=== PATIENT | female | born 1960 | race Caucasian/White ===

== ENCOUNTER 2018-08-13 09:01 | Inpatient (IN) ==
[2018-08-13] MEDS ORDERED: Acetaminophen 325 MG TABLET PO PRN (12:14)
[2018-08-13] MEDS ORDERED: traMADol 50 MG TABLET PO PRN (12:14)
[2018-08-13] MEDS ORDERED: OXYCODONE Oral CONC 10 MG/0.5 ML ORAL.SYG SL PRN ×2 (12:15→12:23)
[2018-08-13] MEDS ORDERED: Naloxone 0.4 MG/ML INJ IVP PRN ×2 (12:21→19:14)
[2018-08-13] MEDS ORDERED: Ondansetron 4 MG/2 ML VIAL IVP PRN ×2 (12:21→19:14)
[2018-08-13] MEDS ORDERED: Ketorolac 15 MG/ML VIAL IVP PRN ×2 (12:23→19:14)
--- NOTE | 2018-08-13 12:26 | Internal Med History&Physical ---
Date of Encounter: 08/13/18 Time of Encounter: 12:00 Internal Medicine - H&P: HPI Chief complaint: fall, L hip pain Admitted From: Hospital to Hospital Transfer History of present illness: Ms. Rios is a 57 year old female with history of depression, migraine, GERD, who presented to the outside hospital ED after an episode of fall. She was walking early this morning, slipped on ice, and fell onto her left side. Subsequently followed by intense L hip pain. Denies any loss of consciousness or head injury. No prodromal symptoms including chest pain, shortness of breath, palpitation, diaphoresis, blurring of vision, or lightheadedness. No recent illnesses, fever/chills, nausea/vomiting, facial droop, slurring of speech, focal weakness/numbness, abdominal pain, change in bowel habits, or dysuria. Prior to the injury, she was able to climb up a flight of stairs without difficulty. Upon presentation, she was afebrile and hemodynamically stable. Labwork showed white blood cell count of 7, hemoglobin 12.9, platelet 206, normal electrolytes and creatinine. EKG shows normal sinus rhythm without ischemic changes. X-ray showed subcapital fracture of the proximal left femur. Orthopedic surgery was contacted from the [facility] and the decision was made to admit the patient at [facility] for further management. Past Med Surg Social Fam HX - Past Medical History Attestation: Yes The following information was validated with the patient. Medical history: GERD, migraine Psychiatric history: depression - Past Surgical History Surgical History: no surgical history - Social History Smoking Status: Never smoker Smokeless Tobacco Status: No Alcohol use: rarely Drug use: none - Family History Mother Adopted: [place]: Candis Cancino Age: 86 Living Status: Still Living Hx Family Cardiac Disorders: Yes (HTN, STROKE) Hx Family Respiratory Disorders: No Hx Family Cancer: No Hx Family GI Disorders: No Hx Family Genitourinary Disorders: No Hx Family Endocrine Disorder: No Hx Family Musculoskeletal Disorders: No Hx Family Neuromuscular Disorders: No Hx Family Neurologic Disorders: No Hx Family HEENT Disorders: No Hx Family Autoimmune Disorders: No Hx Family Reproductive Disorders: No Hx Family Psychosocial Disorders: No Hx Family Medical Disorders: No Internal Medicine - H&P: Meds Allergy/AdvReac Type Severity Reaction Status Date / Time No Known Allergies Allergy Verified 08/13/18 11:30 All Systems PM: A 10-system review of systems was performed and is negative for pertinent findings except as documented above in the HPI. - Constitutional Vitals: Temp Pulse Resp BP 97.5 F L 123 15 158/91 08/13/18 11:44 08/13/18 11:44 08/13/18 11:44 08/13/18 11:44 Exam: General: Alert and oriented, not in acute distress. HEENT:EOMI, pupils equal, round and reactive. Cardiovascular:Normal S1 & S2, No JVD. Pulse regular. Lungs: clear to auscultation, no wheezes/rales Abdomen:Soft, non-tender, no rigidity. Extremities: LLE externally rotated, tender on groin. Neurovascularly intact distally Neurological:Normal cognition and motor skills. Non-focal Skin:Normal color, no rash, no lesions. Pulses:Carotid and radial pulses normal +2. Rest of the physical exam is non contributory - Assessment and Plan (1) Closed left femoral fracture Current Visit: Yes Status: Acute Assessment and plan: following a mechanical fall XR at OSH showed subcapital fracture of the proximal left femur ortho consult, for OR tonight pain mx Qualifiers: Encounter type: initial encounter Femur location: neck Qualified Code(s): S72.002A - Fracture of unspecified part of neck of left femur, initial encounter for closed fracture (2) Pre-operative cardiovascular examination Current Visit: Yes Status: Acute Assessment and plan: Patient does not have any signs and symptoms of ACS, malignant arrhythmia, or decompensated CHF. RCRI 0, 3.9% risk of MACE Able to perform > 4 METS at baseline Low risk for surgery, no further testing indicated (3) Migraine Current Visit: No Status: Chronic Assessment and plan: resume home meds once reconciled Qualifiers: Migraine type: unspecified Status migrainosus presence: without status migrainosus Intractability: not intractable Qualified Code(s): G43.909 - Migraine, unspecified, not intractable, without status migrainosus (4) Depression Current Visit: No Status: Chronic Assessment and plan: resume home meds once reconciled Qualifiers: Depression Type: unspecified Qualified Code(s): F32.9 - Major depressive disorder, single episode, unspecified (5) DVT prophylaxis Current Visit: Yes Status: Acute Assessment and plan: EPCD - Time Spent With Patient Total time spent is greater than 50% in coordination of care (as documented) at patient's floor/unit and/or counseling patient: Greater than 35 minutes
[2018-08-13] MEDS ORDERED: Ringers Solution, Lactated 1,000 ML IVC SCH ×3 (12:30→19:14)
--- NOTE | 2018-08-13 14:08 | Orthopedic Consult Note ---
Date of Encounter: 08/13/18 Time of Encounter: 14:08 Assessment and Plan (1) Status post fall Current Visit: Yes Status: Acute (2) Closed left femoral fracture Current Visit: Yes Status: Acute Qualifiers: Encounter type: initial encounter Femur location: neck Qualified Code(s): S72.002A - Fracture of unspecified part of neck of left femur, initial encounter for closed fracture History of Present Illness Chief complaint: left hip pain with fracture HPI: Ms. Rios is a 57 year old female Presents to [facility] from [facility] after sustaining fall in her employer's parking lot at shortly after 530 this morning. She states she was in the parking lot and walking toward building when she states both her feet went out from under her leading to fall directly onto the left hip. she states she developed pain immediately and was unable to rise to standing. States that had to have people pick her up off the ground. She denies hitting her head or LOC, blurry vision, chest pain, or shortness of breath surrounding the fall. States that she has had ongoing pain since transfer from [facility] to [place]. Denies history of fracture or orthopedic surgery in the past. She denies any history of osteoporosis. On exam patient lying supine in no acute distress. Alert and oriented x 3. Left leg externally rotated. No other gross deformity noted on exam. No calf tenderness to palpation. Neurovascularly intact to b/l LE. CT Mathieu performed for evaluation fracture and for surgical planning reveals acute fracture of the intratrochanteric left femur Assessment Left femur fracture PLAN Case discussed with Dr. Sebastian Left total hip replacement with robotic assistance Informed consent reviewed and obtained from patient Continue NPO Surgery later today Thank you for this consultation Past Med Surg Social Fam HX - Past Medical History Medical history: GERD, migraine Psychiatric history: depression - Past Surgical History Surgical History: no surgical history - Social History Smoking Status: Never smoker Smokeless Tobacco Status: No Alcohol use: rarely Drug use: none - Family History Mother Adopted: [place]: Candis Cancino Age: 86 Living Status: Still Living Hx Family Cardiac Disorders: Yes (HTN, STROKE) Hx Family Respiratory Disorders: No Hx Family Cancer: No Hx Family GI Disorders: No Hx Family Genitourinary Disorders: No Hx Family Endocrine Disorder: No Hx Family Musculoskeletal Disorders: No Hx Family Neuromuscular Disorders: No Hx Family Neurologic Disorders: No Hx Family HEENT Disorders: No Hx Family Autoimmune Disorders: No Hx Family Reproductive Disorders: No Hx Family Psychosocial Disorders: No Hx Family Medical Disorders: No Medications and Allergies Allergy/AdvReac Type Severity Reaction Status Date / Time No Known Allergies Allergy Verified 08/13/18 11:30 All Systems Reviewed: The remainder of the systems were reviewed and are negative Physical Exam - Constitutional Vitals: Temp Pulse Resp BP 97.5 F L 123 15 158/91 08/13/18 11:44 08/13/18 11:44 08/13/18 11:44 08/13/18 11:44 Results - Labs Labs: All other labs normal. Consult Discharge Plan - Plan Referrals: NONE,PCP [Primary Care Provider] -
[2018-08-13] MEDS ORDERED: *HR* Labetalol 20 MG/4 ML SYRINGE IVP PRN ×2 (14:19→19:14)
--- NOTE | 2018-08-13 15:30 | Anesthesia Evaluation PreOp ---
Date of Encounter: 08/13/18 Time of Encounter: 15:28 - Past History Planned Operation: Robotic L-Total Hip Cardiac History: Denies any Significant Hx Pulmonary History: Denies Any Significant HX CASE BRIEFER History: Other (Migraine, Anxiety/Depression) Other Medical History: GERD Anesthesia History: Past Anesthesia (NO prior GA), MH (NO FamHx of MH) Alcohol Use: rarely Drug use: none Medications and Allergies Allergy/AdvReac Type Severity Reaction Status Date / Time No Known Allergies Allergy Verified 08/13/18 11:30 - Meds/Allergy Pre-op Review Medications Reviewed: Yes Allergies Reviewed: Yes Beta Blockers on Current Med List: No Anesthesia Results - Labs Impressions Hip CT 08/13/18 11:33 IMPRESSION: 1. Limited CT [facility] protocol preoperative planning. 2. Acute fracture of the intratrochanteric left femur. D/ / Jamir Siegel MD / Jamir Siegel MD Interpreting Provider: Jamir Siegel MD - Imaging EKG: image reviewed Chest x-ray: image reviewed Anesthesia Exam Vital Signs Temp Pulse Resp BP Pulse Ox 08/13/18 14:57 98.2 F 82 18 138/70 95 08/13/18 11:44 97.5 F L 123 15 158/91 Intake and Output 08/12/18 08/13/18 08/13/18 23:59 07:59 15:59 Intake Total 200 / 200 Output Total 500 / 500 Balance -300 / -300 Intake: Oral 200 / 200 Output: Urine 500 / 500 Other: # Voids 1 Weight 61.7 kg Patient Weight 08/13/18 23:59 Weight 61.7 kg - HEENT Pupil (Motor): Pupils equal, EOMI Mallampati: II Teeth: Normal Oral Opening: Greater than 3 - CASE BRIEFER LOC: Oriented CASE BRIEFER Motor: Normal RUE, Normal LUE, Normal RLE, Normal LLE, Normal Face CASE BRIEFER Sensory: Normal: RUE, LUE, RLE, LLE, Face - Cardiac Rhythm: Regular Murmur: None - Pulmonary Breath Sounds: bilateral Clear Respiratory Effort: Symmetrical Anesthesia Assess/Plan ASA Score: 2 Level of consciousness: Cooperative, Oriented, Tranquil Anesthetic Plan: MAC, Spinal Monitoring Plan: Standard Monitors Recovery Plan: PACU Anes Supervising Prov Stmt: Pt seen/evaluated, R&B discussed, questions answered and consent obtained. - Farrah,
[2018-08-13] MEDS ORDERED: Ethanol\\Acetic Acid\\Na Ace\\Ben 1,000 ML IRRIG.SOLN IR ONE (15:48)
[2018-08-13] MEDS ORDERED: CeFAZolin Syr 2,000MG/20 ML 2,000 MG/20 ML SYRINGE IVPB ONE (16:04)
[2018-08-13] MEDS ORDERED: *HR* Midazolam HCl 2 MG/2 ML VIAL ONE (16:05)
[2018-08-13] MEDS ORDERED: *HR* FentaNYL (PF) 100 MCG/2 ML VIAL ONE ×2 (16:06→16:37)
[2018-08-13] MEDS ORDERED: Lidocaine -MPF 1% 5 ML AMPUL ONE (16:07)
[2018-08-13] MEDS ORDERED: Acetaminophen IV 1,000 MG/100 ML INFUS..BTL ONE (16:30)
[2018-08-13] MEDS ORDERED: KETAMINE HCL 50 MG/ML SYRINGE IV ONE (16:30)
[2018-08-13] MEDS ORDERED: Propofol 500 MG/50 ML INFUS..BTL ONE (16:43)
[2018-08-13] MEDS ORDERED: *HR* EPINEPHrine 1 MG/ML AMPUL ONE (16:43)
--- NOTE | 2018-08-13 17:02 | Anesthesia Procedures ---
Date of Encounter: 08/13/18 Time of Encounter: 16:40 Procedures: Anesthesia - Epidural/Spinal Patient ID/Chart reviewed: Yes Patient examined: Yes Supplemental Oxygen: Nasal Cannula Supplemental Oxygen Rate (L/min): 2 Sedation: Versed (mg): 2 Sedation: Fentanyl (mcg): 100 Site Prep: Aseptic Technique, Sterile prep and drape, Povidone-Iodine 1% Patient position: right lateral decubitus Local Anesthetic: Lidocaine 1% Amount of Local Anesthetic used: 3 CSF: Yes Paresthesia: Yes (Transient RLE ) Spinal Needle Gauge: 25 Spinal Dose: 2.5mL x 0.5% Bupivicaine + 25mcg Fentanyl Procedure: Robotic L-Total Hip Vitals + FHT's: Vital Signs/O2 Sat/Glucose, Most Current Temp Pulse Resp BP Pulse Ox 08/13/18 16:52 78 16 114/73 98 08/13/18 16:50 79 16 139/89 98 08/13/18 16:46 83 16 153/91 95 08/13/18 16:44 78 16 150/97 95 08/13/18 16:25 81 18 141/93 98 08/13/18 14:57 98.2 F 82 18 138/70 95 Anes Supervising Prov Stmt: Landmarks identified, Sterile P&D, 3mL x 1% Lido local to L2-3. 25G Pencan via introducer midline approach. + Transient RLE paresthesia that resolved quickly. Successfully repositioned, + CSF. 2.5mL x 0.5% Spinal Bupiv + 25mcg Fentanyl via Pencan with good result. Pt tolerated procedure well and without immediate complication. VSS and pt comfortable at time of OR arrival. - MD Farrah
[2018-08-13] MEDS ORDERED: EPHEDrine 50 MG/ML VIAL ONE (17:12)
--- NOTE | 2018-08-13 17:51 | Orthopedic Operative Note ---
Date of procedure: 08/13/18 Pre-op diagnosis: Displaced left femoral neck fracture Post-op diagnosis: same Procedure: Procedure: Left Total Hip Replacment robotic-assisted Estimated blood loss: 200 cc Hardware: Metal and polyethylene replacement. [place] [facility] DM Cup: 46 cup Femoral size 6 stem Head: +3 head with Afsaneh Procedural Notes: Displaced femoral neck fracture Operative procedure: The patient was brought to the operating room and placed on the operating room table. After general anesthesia was administered the patient was placed in the lateral decubitus position with the operative leg up. All pressure points were padded appropriately and the head was stabilized in the neutral position. The operative extremity was prepped and draped in the sterile surgical fashion patient received IV antibiotic prior to skin incision. 2 Steinmann pins were placed in the iliac crest 3 cm proximal to the anterior superior iliac spine this was for the robotic-assisted sensor. This was done through a small 2 cm incision. A standard posterior approach is made to the operative hip, the incision was made through the skin and subcutaneous tissue hemostasis was obtained with Bovie cautery. Using careful sharp dissection the fascia was identified and incised exposing the external rotators. The greater trochanter was marked, and length was measured at this time utilizing robotic assistance. The external rotators were released off the greater trochanter and tagged with #2 FiberWire suture. The capsule was T'd open and the hip was brought into internal rotation. The patient had a displaced fracture the femoral neck, femoral head was removed. The femoral neck cut was made at the appropriate levelsi. anterior capsulotomy was performed for the anterior retractor, soft tissues removed from the acetabulum. The acetabulum was then mapped with robotic assistance. Based on the preoperative plan the acetabulum was reamed in one step with a 46 reamer. The 46 acetabulum was impacted with robotic assistance and 40 degrees of abduction and 26 degrees of anteversion. The hip was brought back in to internal rotation and prepared with the box blank machine operator helper followed by the canal finder followed by the reaming process to a size 5/ 6 broaching process in 20 degrees anteversion. It was broached up to the appropriate size 6 Trial reduction revealed leg lengths close to normal. The femoral implant was impacted in place in 20 degrees of anteversion. Trial reduction found the hip to be stable with 3 head and Afsaneh. The trials were removed and the real implants were impacted in place. The hip was reduced, patient had robotic confirmed leg length of 2 shorter than the contralateral side. The hip had excellent stability with forward flexion to 90 degrees adduction of 30 degrees and internal rotation of 60 degrees. The hip had no shuck. The hip sat with an antibacterial solution. It was irrigated out with 2 L of pulse irrigation. The Steinmann pins were removed. The hip was closed by the PA. The deep tissue was irrigated and closed deep with #1 PDS suture superficially with 0 PDS suture and skin was closed with Dermabond and zip tie. The patient was placed in a sterile dressing and abduction pillow. The patient was extubated and transferred to the recovery room in stable condition. Anesthesia: spinal Surgeon: He Sebastian Was there an activities assistant present: No Estimated blood loss (cc): 200 Condition: stable Disposition: PACU
--- NOTE | 2018-08-13 18:54 | Anesthesia Evaluation Post Op ---
Date of Encounter: 08/13/18 Time of Encounter: 18:54 - Vital Signs Vital Signs: Vital Signs/O2 Sat, Most Current Temp Pulse Resp BP Pulse Ox 97.7 F 92 16 119/72 95 08/13/18 18:46 08/13/18 18:46 08/13/18 18:46 08/13/18 18:46 08/13/18 18:46 - Lungs Lungs: Clear Ascult./Percussion - Airway Airway: Non-obstructed - Cardiovascular Regular Rate - Mental Status Mental Status: Alert & Oriented, Answers Appropriately - Pain Pain Scale: 0 Pain Scale used: Numeric (1 - 10) - Nausea Vomiting Nausea Vomiting: Not Present - Hydration Hydration: Ice chips, Has not voided - Discharge PostOp Status: Transfer Patient to floor
[2018-08-13 18:55] LABS: Hematocrit 33.1 % (35.3-44.9); Hemoglobin 10.4 g/dL (11.5-15.4)
[2018-08-13] MEDS ORDERED: MOM Conc 10 ML UD.LIQ PO PRN (19:14)
[2018-08-13] MEDS ORDERED: Sennosides 8.6 MG TABLET PO PRN (19:14)
[2018-08-13] MEDS ORDERED: *HR* Promethazine 25 MG/ML VIAL IVP PRN (19:14)
[2018-08-13] MEDS ORDERED: Temazepam 15 MG CAPSULE PO PRN (19:14)
[2018-08-13] MEDS: traMADol 50 MG TABLET PO PRN (21:43)
[2018-08-13] MEDS: Ascorbic Acid 500 MG TABLET PO SCH (21:43)
[2018-08-13] MEDS: OXYCODONE Oral CONC 10 MG/0.5 ML ORAL.SYG SL PRN (23:56)
[2018-08-14] MEDS: *HR* Enoxaparin 30 MG/0.3 ML SYRINGE SQ SCH ×2 (06:01→18:17)
[2018-08-14] MEDS: OXYCODONE Oral CONC 10 MG/0.5 ML ORAL.SYG SL PRN ×2 (06:03→10:09)
--- NOTE | 2018-08-14 06:48 | Orthopedics Progress Note ---
Date of Encounter: 08/14/18 Time of Encounter: 06:48 Subjective Interval history: Patient was seen this morning doing well without complaints. Afebrile vital signs stable. Operative extremity: Neurovascularly weakness for dorsiflexion we will monitor Dressing clean dry and intact Calves nontender Assessment and plan: Continue with postoperative care Objective Vital signs: Vital Signs Temp Pulse Resp BP Pulse Ox 08/14/18 06:18 98.7 F 90 18 97/64 93 08/14/18 03:03 98.4 F 87 16 108/71 93 08/13/18 23:29 99.5 F 94 16 140/90 94 08/13/18 19:21 98.4 F 87 16 122/85 95 08/13/18 18:56 85 16 115/71 95 08/13/18 18:46 97.7 F 92 16 119/72 95 08/13/18 18:36 97 16 117/81 94 08/13/18 18:26 101 16 103/64 92 08/13/18 18:16 98.5 F 105 14 107/77 95 08/13/18 16:52 78 16 114/73 98 08/13/18 16:50 79 16 139/89 98 08/13/18 16:46 83 16 153/91 95 08/13/18 16:44 78 16 150/97 95 08/13/18 16:25 81 18 141/93 98 08/13/18 14:57 98.2 F 82 18 138/70 95 08/13/18 11:44 97.5 F L 123 15 158/91 Intake and Output 08/13/18 08/13/18 08/14/18 15:59 23:59 07:59 Intake Total 200 / 200 Output Total 500 / 500 200 / 200 300 / 300 Balance -300 / -300 -200 / -200 -300 / -300 Intake: Oral 200 / 200 Output: Urine 500 / 500 300 / 300 Estimated Blood Loss 200 / 200 Other: # Voids 1 Weight 61.7 kg 63 kg Patient Weight 08/14/18 23:59 Weight 63 kg - Labs CBC & BMP: 08/13/18 18:32 Labs: Abnormal lab results Hgb 10.4 g/dL (11.5-15.4) L 08/13/18 18:32 Hct 33.1 % (35.3-44.9) L 08/13/18 18:32 Consult Discharge Plan - Plan Referrals: NONE,PCP [Primary Care Provider] -
[2018-08-14 07:57] LABS: Hematocrit 29.1 % (35.3-44.9); Hemoglobin 9.5 g/dL (11.5-15.4)
--- NOTE | 2018-08-14 09:32 | Internal Med Progress Note ---
Hospitalist Progress Note - Encounter Date of Encounter: 08/14/18 Time of Encounter: 11:00 - Subjective Interval History: Patient is a 57-year-old female who presented status post fall found to have subcapital fracture of left proximal femur now status post left total hip replacement robotic-assisted - Exam Vitals: Temp Pulse Resp BP Pulse Ox 98.7 F 90 18 97/64 93 08/14/18 06:18 08/14/18 06:18 08/14/18 06:18 08/14/18 06:18 08/14/18 06:18 Exam: Gen.: Nonacute distress, alert and oriented 3 ENT: Mucosal membranes moist Respiratory: Lungs are clear to auscultation bilaterally without any wheezing rhonchi or rales Cardiovascular: Normal S1 and S2 regular rate rhythm no murmurs rubs or gallops Abdomen: Soft, nontender and nondistended with positive bowel sounds Extremities: No lower extremity edema Skin: Normal color - Assessment and Plan (1) Closed left femoral fracture Current Visit: Yes Status: Acute Assessment and Plan: Patient presented status post fall found to have subcapital fracture of left proximal femur now status post left total hip replacement robotic-assisted Orthopedics following and appreciate recommendations (2) Migraine Current Visit: No Status: Chronic Assessment and Plan: Continue home medications (3) Depression Current Visit: No Status: Chronic Assessment and Plan: Continue home medications DVT Prophylaxis: Lovenox subcutaneous - Time Spent with Patient Total time spent is greater than 50% in coordination of care (as documented) at patient's floor/unit and/or counseling patient: Internal Medicine: Result - Labs CBC & Chem 7: 08/14/18 06:51 08/14/18 09:20 Labs: Short CBC 08/13/18 08/14/18 Range/Units 18:32 06:51 Hgb 10.4 L 9.5 L (11.5-15.4) g/dL Hct 33.1 L 29.1 L (35.3-44.9) % - Impressions Impressions Hip CT 08/13/18 11:33 IMPRESSION: 1. Limited CT [facility] protocol preoperative planning. 2. Acute fracture of the intratrochanteric left femur. D/ / Jamir Siegel MD / Jamir Siegel MD Interpreting Provider: Jamir Siegel MD Hip X-Ray 08/13/18 15:50 IMPRESSION: Total hip arthropasty without acute hardware complication. D/ / Conrado Croft MD / Conrado Croft MD Interpreting Provider: Conrado Croft MD Consult Discharge Plan - Plan Referrals: NONE,PCP [Primary Care Provider] - (1) Closed left femoral fracture Qualifiers: Encounter type: initial encounter Femur location: neck Qualified Code(s): S72.002A - Fracture of unspecified part of neck of left femur, initial encounter for closed fracture (2) Migraine Qualifiers: Migraine type: unspecified Status migrainosus presence: without status migrainosus Intractability: not intractable Qualified Code(s): G43.909 - Migraine, unspecified, not intractable, without status migrainosus (3) Depression Qualifiers: Depression Type: unspecified Qualified Code(s): F32.9 - Major depressive disorder, single episode, unspecified
[2018-08-14 09:50] LABS: BUN/Creatinine Ratio 22 (6-26); Blood Urea Nitrogen 16 mg/dL (6-20); Calcium 8.5 mg/dL (8.6-10.3); Carbon Dioxide 25 mEq/L (23-29); Chloride 103 mEq/L (98-107); Glucose 175 mg/dL (70-105); Osmolality,Calculated 283 (280-300); Sodium 134 mEq/L (136-145); eGFR For Non-African Americans > 60 (> 60)
[2018-08-14] MEDS: Multivit/Ca/Min/Fe/FA 1 TAB TABLET PO SCH (10:08)
[2018-08-14] MEDS ORDERED: DICLOFENAC SODIUM TP PRN (11:32)
[2018-08-14] MEDS ORDERED: traZODone 50 MG TABLET PO PRN (11:32)
[2018-08-14] MEDS ORDERED: Loratadine 10 MG TABLET PO PRN (11:32)
[2018-08-14] MEDS ORDERED: Ketorolac 15 MG/ML VIAL IM ONE (14:23)
[2018-08-14] MEDS: Ascorbic Acid 500 MG TABLET PO SCH ×2 (14:43→18:17)
[2018-08-14] MEDS ORDERED: 0.9 % Sodium Chloride 500 ML IVC ONE (17:28)
[2018-08-14] MEDS: traMADol 50 MG TABLET PO PRN (21:55)
--- NOTE | 2018-08-15 00:01 | Event Note ---
Date of Encounter: 08/14/18 Time of Encounter: 13:10 Date of procedure: 08/13/18 Pre-op diagnosis: Displaced left femoral neck fracture Post-op diagnosis: same Procedure: Left Total Hip Replacment robotic-assisted Patient seen at bedside. A&Ox3 Dressing and incision c/d/i No calf tenderness, erythema, or warmth. Vascularly intact b/l LE. LEFT FOOT DROP Abnormal sensation per patient to touch to lateral calf and all of foot. Significant pain to anterolateral thigh. Labwork and medications reviewed. Pain control: difficulty with pain control secondary to limited administration of medication secondary to hypotension - hospitalist team aware Participating in PT. All questions and concerns addressed. Educated on use of incentive spirometer, ambulation, and hydration. Patient educated on post-operative restrictions and care. Addressed: AFO for left foot drop D/C plan: continue postop care - will reevaluate tomorrow
[2018-08-15 05:22] LABS: Hematocrit 26.2 % (35.3-44.9); Hemoglobin 8.8 g/dL (11.5-15.4)
[2018-08-15] MEDS: *HR* Enoxaparin 30 MG/0.3 ML SYRINGE SQ SCH ×2 (06:35→17:02)
[2018-08-15] MEDS: traMADol 50 MG TABLET PO PRN (06:35)
--- NOTE | 2018-08-15 06:51 | Orthopedics Progress Note ---
Date of Encounter: 08/15/18 Time of Encounter: 06:50 Subjective Interval history: Patient was seen this morning doing well without complaints. Afebrile vital signs stable. Operative extremity: Neurovascularly still with persistent motor loss of dorsiflexion, patient reports intact sensation. We will treat with supportive care as. Dressing clean dry and intact Calves nontender Assessment and plan: Continue with postoperative care hemoglobin 8.8, I had a long discussion with regards to the foot drop. Based on the fact that the sensation is intact high confidence that this will return over time. AFO to avoid falling. Objective Vital signs: Vital Signs Temp Pulse Resp BP Pulse Ox 08/15/18 05:03 98.7 F 94 16 104/68 95 08/15/18 01:04 98.7 F 100 16 106/68 95 08/14/18 18:29 98.1 F 92 16 105/67 92 08/14/18 17:22 99/61 08/14/18 14:08 99.1 F 87 18 91/56 94 08/14/18 10:37 99.0 F 96 18 103/68 97 Intake and Output 08/14/18 08/14/18 08/15/18 15:59 23:59 07:59 Intake Total 240 / 240 240 / 240 Output Total 600 / 600 Balance -360 / -360 240 / 240 Intake: Oral 240 / 240 240 / 240 Output: Urine 600 / 600 Other: Meal Breakfast Dinner Percent of Meal Consumed 5% 10% Weight 63.2 kg Patient Weight 08/15/18 23:59 Weight 63.2 kg - Labs CBC & BMP: 08/15/18 04:44 08/14/18 09:20 Labs: Abnormal lab results Hgb 8.8 g/dL (11.5-15.4) L 08/15/18 04:44 Hct 26.2 % (35.3-44.9) L 08/15/18 04:44 Sodium 134 mEq/L (136-145) L 08/14/18 09:20 Glucose 175 mg/dL (70-105) H 08/14/18 09:20 Calcium 8.5 mg/dL (8.6-10.3) L 08/14/18 09:20 Consult Discharge Plan - Plan Referrals: NONE,PCP [Primary Care Provider] -
--- NOTE | 2018-08-15 08:50 | Internal Med Progress Note ---
Hospitalist Progress Note - Encounter Date of Encounter: 08/15/18 Time of Encounter: 08:50 - Exam Vitals: Temp Pulse Resp BP Pulse Ox 98.5 F 87 16 105/64 96 08/15/18 07:00 08/15/18 07:00 08/15/18 07:00 08/15/18 07:00 08/15/18 07:00 - Assessment and Plan (1) Closed left femoral fracture Current Visit: Yes Status: Acute (2) Migraine Current Visit: No Status: Chronic (3) Depression Current Visit: No Status: Chronic - Time Spent with Patient Total time spent is greater than 50% in coordination of care (as documented) at patient's floor/unit and/or counseling patient: Internal Medicine: Result - Labs CBC & Chem 7: 08/15/18 04:44 08/14/18 09:20 Labs: Short CBC 08/15/18 Range/Units 04:44 Hgb 8.8 L (11.5-15.4) g/dL Hct 26.2 L (35.3-44.9) % BMP 08/14/18 09:20 Sodium 134 L Potassium 4.0 Chloride 103 Carbon Dioxide 25 BUN 16 Creatinine 0.72 Glucose 175 H Calcium 8.5 L - Impressions Impressions Hip X-Ray 08/14/18 15:52 IMPRESSION: Stable appearance of the left hip arthroplasty. D/ / Micky Meyers MD / Micky Meyers MD Interpreting Provider: Micky Meyers MD Consult Discharge Plan - Plan Referrals: NONE,PCP [Primary Care Provider] - (1) Closed left femoral fracture Qualifiers: Encounter type: initial encounter Femur location: neck Qualified Code(s): S72.002A - Fracture of unspecified part of neck of left femur, initial encounter for closed fracture (2) Migraine Qualifiers: Migraine type: unspecified Status migrainosus presence: without status migrainosus Intractability: not intractable Qualified Code(s): G43.909 - Migraine, unspecified, not intractable, without status migrainosus (3) Depression Qualifiers: Depression Type: unspecified Qualified Code(s): F32.9 - Major depressive disorder, single episode, unspecified
[2018-08-15] MEDS: Multivit/Ca/Min/Fe/FA 1 TAB TABLET PO SCH (11:30)
[2018-08-15] MEDS: Ascorbic Acid 500 MG TABLET PO SCH ×2 (11:30→17:02)
[2018-08-15] MEDS: *HR* OxyCODONE Immed Rel 5 MG TABLET PO PRN (12:26)
--- NOTE | 2018-08-15 13:10 | Event Note ---
Date of Encounter: 08/15/18 Time of Encounter: 13:10 Date of procedure: 08/13/18 Pre-op diagnosis: Displaced left femoral neck fracture Post-op diagnosis: same Procedure: Left Total Hip Replacment robotic-assisted Patient seen at bedside. Patient's sister and mother at bedside. A&Ox3 No calf tenderness, erythema, or warmth. Vascularly intact b/l LE. LEFT FOOT DROP - AFO in place Abnormal sensation per patient to touch to lateral calf and all of foot though sensation is intact. Significant pain to anterolateral thigh - improving per patient. Labwork and medications reviewed. Pain control: improved/adequate today Participating in PT. All questions and concerns addressed. Educated on use of incentive spirometer, ambulation, and hydration. Patient educated on post-operative restrictions and care. Addressed: AFO for left foot drop D/C plan: continue postop care - SNF for rehab - [place] per 08/16
--- NOTE | 2018-08-15 15:37 | Discharge Summary ---
- NOTES TO OUTPATIENT PROVIDER Notes to Outpatient Provider: Patient had left foot drop after surgery and will need rehabilitation was discharged to SNF. Patient would need further workup for anemia including iron studies and colonoscopy as outpatient. Patient to continue Lovenox 30 twice a day for at least 10-14 days. Will need monitoring of hemoglobin with the one week. Orders not resulted at time of discharge: Pending orders 08/13/18 17:52 Surgical Pathology [PTH] Routine Date of Encounter: 08/15/18 Time of Encounter: 11:39 - Discharge Diagnosis (1) Closed left femoral fracture Priority: Primary Status: Acute Qualifiers: Encounter type: initial encounter Femur location: neck Qualified Code(s): S72.002A - Fracture of unspecified part of neck of left femur, initial encounter for closed fracture (2) Migraine Priority: Secondary Status: Chronic Qualifiers: Migraine type: unspecified Status migrainosus presence: without status migrainosus Intractability: not intractable Qualified Code(s): G43.909 - Migraine, unspecified, not intractable, without status migrainosus (3) Depression Priority: Secondary Status: Chronic Qualifiers: Depression Type: unspecified Qualified Code(s): F32.9 - Major depressive disorder, single episode, unspecified Hospital course: Ms. Rios is a 57 year old female with past medical history of GERD, depression, migraine came to ER after a fall and was found to have close left subcapital fracture of femur. Patient underwent left total hip replacement with robotic assistance. Patient developed some weakness of dorsiflexion on the left foot and left foot drop. Per orthopedics high chances of recovery given sensation intact. Patient hemoglobin remained stable without any signs of bleeding at surgical site. Patient does have some chronic anemia and was started on iron supplementation. Patient would be discharged per physical therapy recommendation to SNF for further rehabilitation. Discharge discussed with: patient, family, nurse, sales and leasing consultant - Time Spent with Patient Total time spent providing and/or coordinating discharge services: Time spent: Greater than 30 minutes - Discharge Medications Prescriptions: New OxyCODONE Immed Rel [Roxicodone 5 MG] 5 mg PO Q6HR PRN 4 Days #15 tablet PRN Reason: Severe Pain Enoxaparin [Lovenox] 30 mg SQ Q12HCO syringe Docusate [Colace] 100 mg PO BID capsule Ferrous Sulfate 325 mg PO BIDWM #0 tablet MOM Conc [MILK OF MAGNESIA conc] 5 ml PO HS PRN ud.liq PRN Reason: Constipation Continue Trazodone HCl 50 mg PO HS PRN PRN Reason: Sleep Omeprazole [PriLOSEC] 40 mg PO DAILY PRN PRN Reason: INDGESTION Loratadine [Allergy Relief] 10 mg PO DAILY PRN PRN Reason: Allergy Symptoms Diclofenac Sodium 1 applic TP QID PRN PRN Reason: Pain Citalopram Hydrobromide [Citalopram HBr] 40 mg PO DAILY Home Medications: Citalopram Hydrobromide [Citalopram HBr] 40 mg PO DAILY 08/13/18 [History] Diclofenac Sodium 1 applic TP QID PRN 08/13/18 [History] Loratadine [Allergy Relief] 10 mg PO DAILY PRN 08/13/18 [History] Omeprazole [PriLOSEC] 40 mg PO DAILY PRN 08/13/18 [History] Trazodone HCl 50 mg PO HS PRN 08/13/18 [History] Docusate [Colace] 100 mg PO BID capsule 08/15/18 [Rx] Enoxaparin [Lovenox] 30 mg SQ Q12HCO syringe 08/15/18 [Rx] Ferrous Sulfate 325 mg PO BIDWM #0 tablet 08/15/18 [Rx] MOM Conc [MILK OF MAGNESIA conc] 5 ml PO HS PRN ud.liq 08/15/18 [Rx] OxyCODONE Immed Rel [Roxicodone 5 MG] 5 mg PO Q6HR PRN 4 Days #15 tablet 08/15/18 [Rx] Allergies/Adverse Reactions: Allergy/AdvReac Type Severity Reaction Status Date / Time No Known Allergies Allergy Verified 08/13/18 11:30 Date of admission: 08/13/18 11:38 Primary care physician: PCP NONE Consults: 08/13/18 11:30 Consult to Vector Control Assistant [CONS] Routine Reason for SW Consult: discharge planning 08/13/18 11:31 Consult to Orthopedic Surgery [CONS] Routine Consulting Provider: He Sebastian Reason for Consult: left femur fracture Call Completed: Yes 08/13/18 19:14 Consult to Nurse Navigator [CONS] Routine Comment: ortho navigator Consult to Occupational Therapy [CONS] Routine Comment: Evaluate, develop and implement POC Reason for Consult: total hip replacement Does patient have active BEDREST order?: No Is patient medically & hemodynamically stable?: Yes Consult to Physical Therapy [CONS] Routine Comment: Evaluate, develop and implement POC Reason for Consult: total hip replacement Does patient have active BEDREST order?: No Is patient medically & hemodynamically stable?: Yes Consult to Vector Control Assistant [CONS] Routine Reason for SW Consult: post op joint replacement RT Post Op Consult [CONS] Routine Discharging clinician: Mik Logan - Constitutional Vitals: Temp Pulse Resp BP Pulse Ox 99 F 101 16 107/68 95 08/15/18 11:55 08/15/18 11:55 08/15/18 11:55 08/15/18 11:55 08/15/18 11:55 Exam: General: In no acute distress. Conversant. Respiratory exam: CTAB. no accessory muscle use, rales, rhonchi, wheezes Cardiovascular exam: RRR, +S1, +S2. no murmur, gallop, rubs. GI/Abdominal exam: Non-tender, Non-distended, normal bowel sounds, soft, no peritoneal signs. Extremities exam: full ROM, trace pedal edema on LLE, warm, pulses palpable in b/l lower extremities. no calf tenderness Neurological exam: CN II-XII intact, AO X3, no sensory deficit. very weak dorsiflexion on Lt ankle. Skin exam: No skin rash. Surgical site without signs of bleeding or infection - Patient Status Disposition: Transfer SNF Condition: Good - Discharge Instructions Follow Up With: NONE,PCP [Primary Care Provider] - - Diet and Activity Activity: as per physical therapy
[2018-08-15] MEDS: OXYCODONE Oral CONC 10 MG/0.5 ML ORAL.SYG SL PRN (21:53)
[2018-08-16] MEDS: *HR* Enoxaparin 30 MG/0.3 ML SYRINGE SQ SCH ×2 (05:25→17:24)
[2018-08-16] MEDS: OXYCODONE Oral CONC 10 MG/0.5 ML ORAL.SYG SL PRN ×2 (05:25→22:04)
[2018-08-16 06:42] LABS: Hematocrit 24.8 % (35.3-44.9); Hemoglobin 8.1 g/dL (11.5-15.4)
--- NOTE | 2018-08-16 08:03 | Orthopedics Progress Note ---
Date of Encounter: 08/16/18 Time of Encounter: 08:02 Subjective Interval history: Patient was seen this morning doing well without complaints. Afebrile vital signs stable. Operative extremity: Neurovascularly with slight improvement today compared to yesterday. Dressing clean dry and intact Calves nontender Assessment and plan: Hemoglobin 8.1 we will transfuse 1 unit before discharge. Objective Vital signs: Vital Signs Temp Pulse Resp BP Pulse Ox 08/16/18 04:50 98.9 F 89 17 107/69 96 08/15/18 22:40 99.4 F 93 18 96/60 92 08/15/18 18:55 99.3 F 91 16 121/80 95 08/15/18 14:00 98.9 F 104 16 107/64 96 08/15/18 11:55 99 F 101 16 107/68 95 Intake and Output 08/15/18 08/16/18 08/16/18 23:59 07:59 15:59 Intake Total 690 / 690 375 / 375 Output Total 650 / 650 Balance 40 / 40 375 / 375 Intake: Oral 690 / 690 375 / 375 Output: Urine 650 / 650 Other: Meal Dinner Percent of Meal Consumed 80% Weight 63.1 kg Patient Weight 08/16/18 23:59 Weight 63.1 kg - Labs CBC & BMP: 08/16/18 06:24 08/14/18 09:20 Labs: Abnormal lab results Hgb 8.1 g/dL (11.5-15.4) L 08/16/18 06:24 Hct 24.8 % (35.3-44.9) L 08/16/18 06:24 Sodium 134 mEq/L (136-145) L 08/14/18 09:20 Glucose 175 mg/dL (70-105) H 08/14/18 09:20 Calcium 8.5 mg/dL (8.6-10.3) L 08/14/18 09:20 - VTE Documentation of Mechanical Device: Venous foot pump, device Consult Discharge Plan - Plan Referrals: NONE,PCP [Primary Care Provider] - Prescriptions: OxyCODONE Immed Rel [Roxicodone 5 MG] 5 mg PO Q6HR PRN 4 Days #15 tablet PRN Reason: Severe Pain
[2018-08-16 10:07] LABS: Basophils # 0.1 K/mcL (0.0-0.2); Basophils % 0.6 %; Eosinophils # 0.1 K/mcL (0.0-0.6); Eosinophils % 0.7 %; Hematocrit 28.7 % (35.3-44.9); Hemoglobin 9.2 g/dL (11.5-15.4); Immature Granulocytes % 0.8 % (0-4); Lymphocytes # 1.2 K/mcL (0.6-4.6); Lymphocytes % 13.7 %; Mean Corpuscular HGB Conc 32.1 g/dL (31.6-35.5); Mean Corpuscular Hemoglobin 28.5 pg (28.0-33.3); Mean Corpuscular Volume 88.9 fL (83.0-100.0); Monocytes % 11.7 %; Neutrophils # 6.4 K/mcL (1.6-8.9); Platelet Count 186 K/mcL (140-400); Red Blood Count 3.23 M/mcL (3.82-4.97); Red Cell Distribution Width 13.5 % (11.5-14.5); Segmented Neutrophils % 72.5 %
[2018-08-16] MEDS: Multivit/Ca/Min/Fe/FA 1 TAB TABLET PO SCH (10:19)
[2018-08-16] MEDS: Ascorbic Acid 500 MG TABLET PO SCH ×2 (10:19→17:23)
--- NOTE | 2018-08-16 10:31 | Orthopedics Progress Note ---
Date of Encounter: 08/16/18 Time of Encounter: 10:31 - Assessment and Plan (1) Stage 2 chronic kidney disease Current Visit: Yes Status: Chronic Subjective Interval history: Patient was seen this morning doing well without complaints. Afebrile vital signs stable. Operative extremity: Neurovascularly with slight improvement today compared to yesterday. Dressing clean dry and intact Calves nontender Assessment and plan: Hemoglobin 8.1 we will transfuse 1 unit before discharge. Objective Vital signs: Vital Signs Temp Pulse Resp BP Pulse Ox 08/16/18 06:30 98.7 F 93 16 107/64 97 08/16/18 04:50 98.9 F 89 17 107/69 96 08/15/18 22:40 99.4 F 93 18 96/60 92 08/15/18 18:55 99.3 F 91 16 121/80 95 08/15/18 14:00 98.9 F 104 16 107/64 96 08/15/18 11:55 99 F 101 16 107/68 95 Intake and Output 08/15/18 08/16/18 08/16/18 23:59 07:59 15:59 Intake Total 690 / 690 375 / 375 Output Total 650 / 650 Balance 40 / 40 375 / 375 Intake: Oral 690 / 690 375 / 375 Output: Urine 650 / 650 Other: Meal Dinner Percent of Meal Consumed 80% Weight 63.1 kg Patient Weight 08/16/18 23:59 Weight 63.1 kg - Labs CBC & BMP: 08/16/18 09:47 08/14/18 09:20 Labs: Abnormal lab results RBC 3.23 M/mcL (3.82-4.97) L 08/16/18 09:47 Hgb 9.2 g/dL (11.5-15.4) L 08/16/18 09:47 Hct 28.7 % (35.3-44.9) L 08/16/18 09:47 Sodium 134 mEq/L (136-145) L 08/14/18 09:20 Glucose 175 mg/dL (70-105) H 08/14/18 09:20 Calcium 8.5 mg/dL (8.6-10.3) L 08/14/18 09:20 - VTE Documentation of Mechanical Device: Venous foot pump, device Consult Discharge Plan - Plan Referrals: NONE,PCP [Primary Care Provider] - Prescriptions: OxyCODONE Immed Rel [Roxicodone 5 MG] 5 mg PO Q6HR PRN 4 Days #15 tablet PRN Reason: Severe Pain
--- NOTE | 2018-08-16 10:39 | Internal Med Progress Note ---
Hospitalist Progress Note - Encounter Date of Encounter: 08/16/18 Time of Encounter: 10:39 - Subjective Interval History: Patient seen and examined this morning. No acute overnight events. Slightly feeling better in terms of her strength in her left lower limb. Denies any bleeding or significant pain. Was started on blood transfusion this morning per orthopedist. Waiting for placement. - Exam Vitals: Temp Pulse Resp BP Pulse Ox 98.7 F 93 16 107/64 97 08/16/18 06:30 08/16/18 06:30 08/16/18 06:30 08/16/18 06:30 08/16/18 06:30 Exam: General: In no acute distress. Conversant. Respiratory exam: CTAB. no accessory muscle use, rales, rhonchi, wheezes Cardiovascular exam: RRR, +S1, +S2. no murmur, gallop, rubs. GI/Abdominal exam: Non-tender, Non-distended, normal bowel sounds, soft, no peritoneal signs. Extremities exam: full ROM, trace pedal edema on LLE, warm, pulses palpable in b /l lower extremities. no calf tenderness Neurological exam: CN II-XII intact, AO X3, no sensory deficit. weak dorsiflexion on Lt ankle. Skin exam: No skin rash. Surgical site without signs of bleeding or infection - Assessment and Plan (1) Closed left femoral fracture Current Visit: Yes Status: Acute (2) Migraine Current Visit: No Status: Chronic (3) Depression Current Visit: No Status: Chronic - Summary of Assessment and Plan Summary of Assessment and Plan: Anemia due to blood loss - Acute on chronic - Getting blood transfusion today - c/w iron supplementation s/p with left subcapital fracture of femur - s/p left total hip replacement with robotic assistance. - Has some weakness of dorsiflexion on the left foot and left foot drop. Per orthopedics very good chances of recovery given sensation intact. - c/w lovenox for DVT prophylaxis. - Awaiting SNF for further rehabilitation. - Time Spent with Patient Total time spent is greater than 50% in coordination of care (as documented) at patient's floor/unit and/or counseling patient: Internal Medicine: Result - Labs CBC & Chem 7: 08/16/18 09:47 08/14/18 09:20 Labs: Short CBC 08/16/18 08/16/18 Range/Units 06:24 09:47 WBC 8.8 (4.3-11.1) K/mcL Hgb 8.1 L 9.2 L (11.5-15.4) g/dL Hct 24.8 L 28.7 L (35.3-44.9) % Plt Count 186 (140-400) K/mcL Neutrophils # 6.4 (1.6-8.9) K/mcL - VTE Documentation of Mechanical Device: Venous foot pump, device Consult Discharge Plan - Plan Referrals: NONE,PCP [Primary Care Provider] - Prescriptions: OxyCODONE Immed Rel [Roxicodone 5 MG] 5 mg PO Q6HR PRN 4 Days #15 tablet PRN Reason: Severe Pain (1) Closed left femoral fracture Qualifiers: Encounter type: initial encounter Femur location: neck Qualified Code(s): S72.002A - Fracture of unspecified part of neck of left femur, initial encounter for closed fracture (2) Migraine Qualifiers: Migraine type: unspecified Status migrainosus presence: without status migrainosus Intractability: not intractable Qualified Code(s): G43.909 - Migraine, unspecified, not intractable, without status migrainosus (3) Depression Qualifiers: Depression Type: unspecified Qualified Code(s): F32.9 - Major depressive disorder, single episode, unspecified
[2018-08-16] MEDS ORDERED: 0.9 % Sodium Chloride 250 ML ONE (13:13)
--- NOTE | 2018-08-16 17:08 | Event Note ---
Date of Encounter: 08/16/18 Time of Encounter: 08:30 Date of procedure: 08/13/18 Pre-op diagnosis: Displaced left femoral neck fracture Post-op diagnosis: same Procedure: Left Total Hip Replacment robotic-assisted Patient seen at bedside working with therapy. A&Ox3 No calf tenderness, erythema, or warmth. Vascularly intact b/l LE. LEFT FOOT DROP - AFO in place - sensation and toe motion improved today, ambulation improved today Abnormal sensation per patient to touch to lateral calf and all of foot though sensation to palpation is intact. Significant pain to anterolateral thigh - improving per patient. Labwork and medications reviewed. Pain control: improved/adequate today Participating in PT. All questions and concerns addressed. Educated on use of incentive spirometer, ambulation, and hydration. Patient educated on post-operative restrictions and care. Addressed: AFO for left foot drop; patient with again drop in hgb/hct and c/o fatigue and weakness - discussed risks/benefits of blood transfusion - patient a grees to transfusion - nursing to review again and give 1 unit for patient. D/C plan: continue postop care - SNF for rehab - [place] awaiting auth
[2018-08-16] MEDS: traMADol 50 MG TABLET PO PRN (17:23)
[2018-08-16 20:07] LABS: Hematocrit 30.7 % (35.3-44.9); Hemoglobin 9.8 g/dL (11.5-15.4)
--- NOTE | 2018-08-17 06:26 | Orthopedics Progress Note ---
Date of Encounter: 08/17/18 Time of Encounter: 06:26 - Assessment and Plan (1) Stage 2 chronic kidney disease Current Visit: Yes Status: Chronic Subjective Interval history: Patient was seen this morning doing well without complaints. Afebrile vital signs stable. Operative extremity: Neurovascularly with improvement Dressing clean dry and intact Calves nontender Assessment and plan: Stable for discharge Objective Vital signs: Vital Signs Temp Pulse Resp BP Pulse Ox 08/17/18 03:55 99.2 F 87 16 133/80 96 08/16/18 23:37 99.0 F 81 15 112/72 95 08/16/18 19:30 98.9 F 83 17 123/79 97 08/16/18 16:50 99.4 F 99 16 115/72 96 08/16/18 13:24 98.2 F 94 16 99/59 96 08/16/18 13:19 98.6 F 90 16 111/67 98 08/16/18 09:45 98.5 F 87 16 101/67 95 08/16/18 06:30 98.7 F 93 16 107/64 97 Intake and Output 08/16/18 08/16/18 08/17/18 15:59 23:59 07:59 Intake Total 442 / 442 750 / 750 Balance 442 / 442 750 / 750 Intake: Oral 360 / 360 400 / 400 Blood Product 82 / 82 350 / 350 Rbcs Leuko Poor As-1 Unit 82 / 82 350 / 350 [id number] Other: Meal Lunch Percent of Meal Consumed 75% # Voids 1 1 1 Weight 63.4 kg Patient Weight 08/17/18 23:59 Weight 63.4 kg - Labs CBC & BMP: 08/16/18 17:12 08/14/18 09:20 Labs: Abnormal lab results RBC 3.23 M/mcL (3.82-4.97) L 08/16/18 09:47 Hgb 9.8 g/dL (11.5-15.4) L 08/16/18 17:12 Hct 30.7 % (35.3-44.9) L 08/16/18 17:12 Sodium 134 mEq/L (136-145) L 08/14/18 09:20 Glucose 175 mg/dL (70-105) H 08/14/18 09:20 Calcium 8.5 mg/dL (8.6-10.3) L 08/14/18 09:20 - VTE Documentation of Mechanical Device: Venous foot pump, device Consult Discharge Plan - Plan Referrals: NONE,PCP [Primary Care Provider] - Prescriptions: OxyCODONE Immed Rel [Roxicodone 5 MG] 5 mg PO Q6HR PRN 4 Days #15 tablet PRN Reason: Severe Pain
[2018-08-17] MEDS: *HR* Enoxaparin 30 MG/0.3 ML SYRINGE SQ SCH (06:43)
[2018-08-17] MEDS: *HR* OxyCODONE Immed Rel 5 MG TABLET PO PRN (06:46)
[2018-08-17] MEDS: Ascorbic Acid 500 MG TABLET PO SCH (08:57)
[2018-08-17] MEDS: Multivit/Ca/Min/Fe/FA 1 TAB TABLET PO SCH (08:57)
[2018-08-17 11:15] VITALS: BP 114/68
[2018-08-17] MEDS: OXYCODONE Oral CONC 10 MG/0.5 ML ORAL.SYG SL PRN (12:23)
--- NOTE | 2018-08-17 12:35 | Internal Med Progress Note ---
Hospitalist Progress Note - Encounter Date of Encounter: 08/17/18 Time of Encounter: 12:35 - Subjective Interval History: Reason seen and examined this morning in the center. No acute overnight events. Slight pain in her left leg after physical therapy. Denies any difficulty breathing urinary or bowel complaints. - Exam Vitals: Temp Pulse Resp BP Pulse Ox 98.5 F 102 16 114/68 97 08/17/18 11:14 08/17/18 11:14 08/17/18 11:14 08/17/18 11:14 08/17/18 11:14 Exam: General: In no acute distress. Conversant. Respiratory exam: CTAB. no accessory muscle use, rales, rhonchi, wheezes Cardiovascular exam: RRR, +S1, +S2. no murmur, gallop, rubs. GI/Abdominal exam: Non-tender, Non-distended, normal bowel sounds, soft, no peritoneal signs. Extremities exam: full ROM, trace pedal edema on LLE, warm, pulses palpable in b/l lower extremities. no calf tenderness Neurological exam: CN II-XII intact, AO X3, no sensory deficit. weak dorsiflexion on Lt ankle. Skin exam: No skin rash. Surgical site without signs of bleeding or infection - Assessment and Plan (1) Closed left femoral fracture Current Visit: Yes Status: Acute (2) Migraine Current Visit: No Status: Chronic (3) Depression Current Visit: No Status: Chronic - Summary of Assessment and Plan Summary of Assessment and Plan: Anemia due to blood loss - Acute on chronic - H&H stable - c/w iron supplementation on discharge s/p with left subcapital fracture of femur - s/p left total hip replacement with robotic assistance. - Has some weakness of dorsiflexion on the left foot and left foot drop. Per orthopedics very good chances of recovery given sensation intact. - c/w lovenox for DVT prophylaxis. - Awaiting SNF for further rehabilitation. - Time Spent with Patient Total time spent is greater than 50% in coordination of care (as documented) at patient's floor/unit and/or counseling patient: Internal Medicine: Result - Labs CBC & Chem 7: 08/16/18 17:12 08/14/18 09:20 Labs: Short CBC 08/16/18 Range/Units 17:12 Hgb 9.8 L (11.5-15.4) g/dL Hct 30.7 L (35.3-44.9) % - VTE Documentation of Mechanical Device: Venous foot pump, device Consult Discharge Plan - Plan Additional Instructions: Discharge Instructions: Total Hip Replacement Please call [facility] ([phone]), your Primary Care Physician, or report to the Emergency Room if you have any of the following symptoms: Nausea, vomiting, fever greater that 101.5, swelling, chest pain, shortness of breath, increased pain/redness/drainage/odor for your incision site, numbness/tingling, or any other concerning symptoms. ACTIVITY:Weight-bearing as tolerated for 8 weeks with hip dislocation precautions that physical therapy taught you. You may progress as tolerated under the guidance of your physical therapist. You do not need to sleep with a pillow between your legs. You can also seep on the operative side or on your stomach. Incentive Spirometer 10 times an hour. MEDICATIONS: Upon discharge resume your home medications. Take all the medications as prescribed. Take a stool softener if taking narcotic pain medications. Stool softeners are only effective if you drink enough fluids. Drink 6-8 glass of water or fluids a day, unless this is not allowed for another health problem. Despite using stool softeners, if you haven't had a bowel movement in 3 days, please switch to a gentle laxative. Gentle laxatives are sold over the counter. You should have a bowel movement within 24 hours, if not call the office. You will be discharged from the hospital with a prescription for pain medication. You are encouraged to decrease the use of narcotic pain medication as tolerated. Should you require a refill, please call the office. [facility] prescribes narcotic pain medication for only 4-6 weeks after surgery. If you require pain medication beyond this time period, you may be referred to your Primary Care Physician or to the Pain Clinic for further evaluation. Plan ahead for refills on pain medication as many narcotics either need to be picked up at the office or mailed. It is best to call 48-72 hours in advance of needing a prescription refill so you don't run out of medication. To help control the post-operative pain, you may take NSAIDs (Aleve,Advil, Motrin, ibuprofen, naprosyn) or Tylenol as prescribed on the bottle in addition to the pain medication. ANTICOAGULATION (blood thinners): Continue your Aspirin, Lovenox or Coumadin as prescribed to help prevent a blood clot in the leg or in the lungs. As long as your incision remains dry and you tolerate the NSAIDs (Aleve, Advil, Motrin, Ibuprofen, Naprosyn), it is OK to use the NSAIDS while you are taking your anticoagulation medication. Should your incision start to drain, stop the NSAID and contact our office. Common symptoms of blood clot in the legs include: localized pain, swelling, calf tenderness, redness or discoloration of the skin. Blood clot in the lung symptoms include: shortness of breath, rapid pulse, sweating, and chest pain that worsens with deep breathing, coughing up blood, lightheadedness, feelings of anxiety. If you experience any of these symptoms notify your physician immediately, go to the emergency room, or if having trouble breathing, call 911. WOUND CARE: Leave the dressing on for 7 to 10days. You may change the dressing if it is saturated greater than 50%. Do not get the dressing wet at anytime. Wash your hands with antibacterial soap, rinse and dry prior to any wound care. If you have tootie the visiting nurse or rehab facility can remove the stapes 10-14 days after surgery and place steri-strips across the wound. Leave the steri-strips in place until they fall off on their own. You may let water from the shower run on top of the steri-strips. If you do not have a visiting nurse or rehab facility, you will need to return to the office at 10-14 days for the s taples to be removed. If you have itching or redness around the dressing call the office. FOLLOW-UP: Please follow up with your surgeon in the orthopedic clinic in 6 weeks from the day of surgery. If you have tootie that need to be removed, you will need to come back to the office in 10-14 days from the day of surgery. Referrals: NONE,PCP [Primary Care Provider] - Prescriptions: OxyCODONE Immed Rel [Roxicodone 5 MG] 5 mg PO Q6HR PRN 4 Days #15 tablet PRN Reason: Severe Pain (1) Closed left femoral fracture Qualifiers: Encounter type: initial encounter Femur location: supracondylar without intracondylar extension (2) Migraine Qualifiers: Migraine type: unspecified Status migrainosus presence: without status migrainosus Intractability: not intractable Qualified Code(s): G43.909 - Migraine, unspecified, not intractable, without status migrainosus (3) Depression Qualifiers: Depression Type: unspecified Qualified Code(s): F32.9 - Major depressive disorder, single episode, unspecified
--- NOTE | 2018-08-17 13:34 | Physician Discharge Referral ---
Addendum entered and electronically signed by SHELL Walker 08/17/18 16:07: Status post left total hip Left foot drop Total Hip replacement Precautions Apply cold therapy 3-6x/day for 20 minutes at a time. Encourage ambulation throughout the day and incentive spirometer 10x/hour. Elevate affected extremity as tolerated. Brace: Wear hip abduction pillow when laying/sleeping Wear AFO to left foot with activity and ambulation. Opsite placed. Keep dressing intact until first follow up appointment. If greater than 50% saturated, notify office, remove dressing and place appropriate dressing back in place. Leave Zipline intact. Opsite dressing is water resistant, not water-proof. OK to shower, but do not get dressing wet. Original Note: [facility] Referral Info Transfer To: [facility] Institutional Level of Care: Skilled - Diagnosis (1) Closed left femoral fracture Status: Acute (2) Migraine Status: Chronic (3) Depression Status: Chronic - Transfer Medications Prescriptions: OxyCODONE Immed Rel [Roxicodone 5 MG] 5 mg PO Q6HR PRN 4 Days #15 tablet PRN Reason: Severe Pain Home Medications: Citalopram Hydrobromide [Citalopram HBr] 40 mg PO DAILY 08/13/18 [History] Diclofenac Sodium 1 applic TP QID PRN 08/13/18 [History] Loratadine [Allergy Relief] 10 mg PO DAILY PRN 08/13/18 [History] Omeprazole [PriLOSEC] 40 mg PO DAILY PRN 08/13/18 [History] Trazodone HCl 50 mg PO HS PRN 08/13/18 [History] Docusate [Colace] 100 mg PO BID capsule 08/15/18 [Rx] Enoxaparin [Lovenox] 30 mg SQ Q12HCO syringe 08/15/18 [Rx] Ferrous Sulfate 325 mg PO BIDWM #0 tablet 08/15/18 [Rx] MOM Conc [MILK OF MAGNESIA conc] 5 ml PO HS PRN [id number] 08/15/18 [Rx] OxyCODONE Immed Rel [Roxicodone 5 MG] 5 mg PO Q6HR PRN 4 Days #15 tablet 08/15/18 [Rx] Allergies/Adverse Reactions: Allergy/AdvReac Type Severity Reaction Status Date / Time No Known Allergies Allergy Verified 08/13/18 11:30 - Respiratory Orders Smoking Cessation: Smoking cessation has been advised. For more information, call the [place] Tobacco Quit Line at 1-912-CLDR-NOW. CERTIFICATION: I certify that the transfer of the above named patient to an Extended Care Facility is necessary for the continuing treatment of the diagnosis listed. The above information is true and accurate reflection of patient's current condition. Confidential - Redisclosure prohibited without a patient's written consent.
== END 2018-08-17 16:06 | DRG 470 ==
LOC: 3NENU 11:38 → SUATTDRO 11:38
PROVIDERS: ADMIT Internal Medicine; ATTEND Internal Medicine